=== PATIENT | male | born 1970 | race Caucasian/White ===

== ENCOUNTER 2023-06-08 15:15 | Emergency (ER) | payer BC, OTHER ==
[~2023-06-08] VITALS: Ht 160 cm; Wt 114.2 kg
[2023-06-08] MEDS ORDERED: FLUORESCEIN OPHTH 1MG STRIP OD ONE (19:25)
[2023-06-08] MEDS ORDERED: TETRACAINE 0.5% OPHTH SOLN 4ML OD ONE (19:25)
[2023-06-08] MEDS ORDERED: ERYTHROMYCIN OPHTH OINT OD ONE (19:45)
[2023-06-08] MEDS ORDERED: NORCO 5/325MG TABLET (HOME DOSE PACK) PO ONE (19:45)
[2023-06-08] MEDS ORDERED: ERYT5OIN25 OD (19:46)
[2023-06-08 20:41] VITALS: BP 142/72; TEMP 97.9; O2SAT 95
== END 2023-06-08 20:42 | disposition home or self-care (01) ==
LOC: M ED 15:15
DX: T15.01XA Foreign body in cornea, right eye, initial encounter (principal); E11.9 Type 2 diabetes mellitus without complications; J45.909 Unspecified asthma, uncomplicated; Z79.2 Long term (current) use of antibiotics